=== PATIENT | female | born 1975 | race Caucasian/White ===

== ENCOUNTER 2021-07-10 07:24 | Day surgery (SDC) | payer OTHER ==
[~2021-07-10] VITALS: Ht 154.9 cm; Wt 72.6 kg
[2021-07-10] MEDS ORDERED: MIDAZOLAM 5 MG/5 ML VIAL ONE (09:28)
[2021-07-10] MEDS ORDERED: fentaNYL citrate 0.05 MG/ML VIAL ONE (09:28)
[2021-07-10] MEDS ORDERED: LIDOCAINE 2% 100 MG/5 ML UJET TP ONE (09:29)
[2021-07-10] MEDS ORDERED: fentaNYL citrate 0.05 MG/ML VIAL IVP ONE (14:30)
[2021-07-10] MEDS ORDERED: MIDAZOLAM 2 MG/2 ML VIAL IVP ONE (14:30)
== END 2021-07-10 11:00 | disposition home or self-care (01) ==
LOC: MDS 07:24 → MMU 07:24 → MDS 11:00
PROVIDERS: ATTEND Internal Medicine Gastroenterology
DX: R15.9 Full incontinence of feces (principal); K57.30 Diverticulosis of large intestine without perforation or abscess without bleeding; F31.9 Bipolar disorder, unspecified; E11.9 Type 2 diabetes mellitus without complications; Z20.822 Contact with and (suspected) exposure to COVID-19; Z79.899 Other long term (current) drug therapy
CPT/HCPCS: 45378; 81025; 87426; J2250; J3010